=== PATIENT | female | born 1965 | race Caucasian/White ===

== ENCOUNTER 2025-06-13 14:49 | Outpatient (AMB) | payer BC, SELFPAY ==
--- NOTE | 2025-06-13 14:53 | A.PHYSOV ---
Vital Signs 06/13/25 15:00 Height 5 ft 4 in Weight 122 lb BMI 20.9 Intake Visit Reasons: F/U after injection 04/14/2025 Intake Note: Patient is a 59 year old female in office today for a follow up after Right Sacroiliac Joint injection 04/14/25. Patient states she's back to normal with the pain. Full Stack Web Developer Required: No Allergies terbinafine (From Lamisil) Allergy (Unknown, Verified 06/13/25 14:57) Unknown HPI Comments Details: History of Present Illness The patient is a 59 year old female presenting for a follow-up visit for chronic lower back pain. The pain is primarily on the right side of her lower back, concentrated over the right sacroiliac joint area, and is exacerbated by standing and walking. She is radiating down her right hip and denies any changes in bowel or bladder habits, fever, or chills. Her history is notable for a lumbar fusion at L4-L5 with a yanely and four screws, performed in 2019. She was referred by her chiropractor, Dr. Waters, for ongoing symptoms. A right sacroiliac joint injection on April 14, 2025, provided approximately one week of pain relief, though the procedure itself was very painful. She continues to receive chiropractic treatments. She continues to perform physician guided home exercises. Pain Description - Onset and character: Chronic lower back pain. - Location: Primarily on the right side of her lower back, concentrated over the right sacroiliac joint. - Radiation: The pain does not travel down her leg. - Exacerbating factors: Standing and walking. - Relieving factors: A right SI joint injection provided temporary relief for about one week. Results - Imaging: X-rays from March 09, 2025, showed degenerative changes in the lumbosacral spine and spondylolisthesis at L5-S1. - Procedures: A right sacroiliac joint injection performed on April 14, 2025, resulted in about one week of pain relief. [facility] Medical History (Updated 06/13/25 @ 15:19 by Eliud Rocha DO) Post laminectomy syndrome Sacroiliac dysfunction Lumbar radiculitis Surgical History (Updated 06/13/25 @ 14:59 by Mary Martinez MA) History of knee surgery History of back surgery Social History (Updated 06/13/25 @ 15:00 by Mary Martinez MA) Alcohol intake: current Alcohol intake frequency: does not drink Patient Tobacco Use Status: Former Tobacco user Use of substances other than those prescribed or required for medical reasons: No Current occupational status: employed Current occupation: fulltime Review of Systems Narrative Review of Systems - Constitutional: Denies fever or chills. - Musculoskeletal: Reports chronic right-sided lower back pain, exacerbated by standing and walking. - Neurological: Denies pain radiating down the leg. - Genitourinary: Denies any change in bladder habits. - Gastrointestinal: Denies any change in bowel habits. Physical Exam Exam Exam: Physical Exam - Musculoskeletal: On examination while standing, tenderness was elicited with palpation over the right lower back and sacroiliac region. Patient ambulates without antalgia. She was able to perform heel walk and toe walk. Positive right SI compression test. Dural tension signs were negative. Neurological examination was nonfocal. Patient demonstrated no upper motor neuron signs. Vital Signs: BMI result Body Mass Index 20.9 Assessment & Plan Assessment & Plan (1) Lumbar radiculitis: Code(s): M54.16 - Radiculopathy, lumbar region Category: Medical (2) Sacroiliac dysfunction: Code(s): M53.3 - Sacrococcygeal disorders, not elsewhere classified Category: Medical (3) Post laminectomy syndrome: Code(s): M96.1 - Postlaminectomy syndrome, not elsewhere classified Category: Medical Plan Pain Management - Affect: The patient described her prior right SI joint injection as very painful. - Analgesia: A right SI joint injection provided approximately one week of pain relief. - Activities of Daily Living: Pain is exacerbated by standing and walking. Plan Patient was informed and verbally consented to the use of an ambient scribe for clinic note documentation during this visit. 1. Chronic Lower Back Pain The patient reports continued chronic right-sided low back pain despite prior interventions, including a right sacroiliac joint injection that provided only one week of relief. The differential diagnosis includes persistent sacroiliac joint pain or an alternative etiology, such as pathology at the L5-S1 level below her prior L4-L5 fusion, where spondylolisthesis is noted. To further evaluate the source of her pain, an MRI of the lumbar spine with contrast will be ordered, as her surgery was in 2019. Given her traumatic experience with the previous injection, future procedures, should they be necessary at the L5-S1 level, would be considered under anesthesia. The patient will be contacted by the imaging facility to schedule the MRI, and a follow-up appointment will be arranged to discuss the results. Discussion Notes I discussed with the patient that her chronic right-sided low back pain may still be originating from the sacroiliac joint, despite the short duration of relief from the injection, or it could be from a different issue. I recommended we proceed with a new MRI of her lumbar spine to further investigate, particularly to assess the L5-S1 level below her fusion, which shows some spondylolisthesis. I explained that because her surgery was in 2019, the MRI would require contrast. We acknowledged her traumatic experience with the last injection, and I advised that if a future procedure is needed, we would consider performing it under anesthesia for her comfort. I informed her my office will submit the request for the MRI, the imaging facility will call her to schedule, and we will have a follow-up visit after the results are available. The patient was agreeable to this plan. Patient Instructions - We will be ordering an MRI of your lower back with contrast to get a better look at what is causing your pain. - The MRI facility will call you directly to schedule your appointment. - We will schedule a follow-up visit to review the results of your MRI and decide on the next steps for treatment. Orders: Orders MR lumbar spine wo/w con Today M53.3 - Sacrococcygeal disorders, not elsewhere classified, M54.16 - Radiculopathy, lumbar region, M96.1 - Postlaminectomy syndrome, not elsewhere classified Coding Level of Care Code Est Pt Level 4 (81343) Complex visit Add On G2211 Diagnoses Lumbar radiculitis M54.16 Sacroiliac dysfunction M53.3 Post laminectomy syndrome M96.1
[2025-06-13 15:00] VITALS: BMI 20.9
--- OUTSIDE RECORDS SUMMARY | 2025-06-13 20:55 | XMS_ITS | Encounter Summary ---
Author Organization [employer] [facility] Prior to 05/06/2024 Address [address] [place] [address] Care Team Providers Care Commercial Floor Covering Installer Name Role Phone Kelsy Ruth MD Primary Care Provider Shreyas paula Bray Ch MD Primary Care Provider [phone] Encounter Details Date Type Department Care Team Description 09/16/2018 Release of Information Medical Records [address] [place] [address] Abstract, Provider Social History Tobacco Use Types Packs/Day Years Used Date Smoking Tobacco: Every Day Cigarettes 0.5 20 Smokeless Tobacco: Never Alcohol Use Standard Drinks/Week Comments Yes 0 (1 standard drink = 0.6 oz pure alcohol) alcohol abuse until 2002, recidivism 2011 - 2013 Alcohol Habits Answer Date Recorded How often do you have a drink containing alcohol ? Never 07/03/2020 How many drinks containing a lcohol do you have on a typical day when you are drinking? Not asked How often do you have six or more drinks on one occasion? Not asked Sex Assigned at Date Recorded Not on file documented as of this encounter Plan of Treatment Not on file documented as of this encounter Visit Diagnoses Not on filedocumented in this encounter Care Teams Commercial Floor Covering Installer Relationship Specialty Start Date End Date Kelsy Ruth MD PCP - General 08/17/10 12/24/20 Trace Bray MD [address], [place] PCP - General Internal Medicine 12/25/20 documented as of this encounter
--- OUTSIDE RECORDS SUMMARY | 2025-06-13 20:55 | XMS_ITS | Encounter Summary ---
Author Organization [facility] [employer] [facility] Prior to 05/06/2024 Address [address] [place] [address] Care Team Providers Care Hvac Refrigeration Technician Name Role Phone Kelsy Ruth MD Primary Care Provider Arthur Bray Primary Care Provider [phone] Reason for Visit * Reason Onset Date Comments refill request 09/13/2018 Encounter Details Date Type Department Care Team Description 09/13/2018 Refill Adult Medicine - [facility] [address] [place] [address] Kelsy Ruth MD refill request Social History Tobacco Use Types Packs/Day Years [...] on file documented as of this encounter Miscellaneous Notes * Telephone Encounter - Cecille Sneed NP - 09/13/2018 4:31 PM EDT Will prescribe #6 tabs. Pt aware that this WILL NOT be refilled * Telephone Encounter - Renetta Morelos - 09/13/2018 4:10 PM EDT Pt calling to check the status of this- pt states she will start to make her way in, she really needs this medicaiton today * Telephone Encounter - Nelly Grimes M.A. - 09/13/2018 1:40 PM EDT No csc * Telephone Encounter - Jigna De Los Santos - 09/13/2018 1:39 PM EDT Patient would like script to be: E-PRESCRIBED/FAXED TO PHARMACY WHEN WAS THE PATIENT'S LAST APPOINTMENT IN ADULT MEDICINE? 09/10/18 WHEN WAS THE LAST TIME THE PATIENT SAW THEIR PCP? Does patient have an upcoming appointment? No-patient refused appointment, will call back to book appointment (THE MEDICATION REQUESTED IS ON THE MED LIST ABOVE) All of the medications requested were on the CURRENT MEDS list Did you check the Pharmacy information above?: NO Patient wants: 30 -day supply Is this a mail order prescription request ? NO If the refill is from a FAXED refill request what is the RX # listed on the fax? N/A Patients current insurance carrier is: Payor: [employer]/PPO POS / Plan: FEP BASIC $30/$40 [place] / Product Type: PPO [id number] documented in this encounter Plan of Treatment Not on file documented as of this encounter Visit Diagnoses Not on filedocumented in this encounter Care Teams Hvac Refrigeration Technician Relationship Specialty Start Date End Date Kelsy Ruth MD PCP - General 08/17/10 12/24/20 Trace Bray MD [address] [place] [id number] PCP - General Internal Medicine 12/25/20 documented as of this encounter
--- OUTSIDE RECORDS SUMMARY | 2025-06-13 20:55 | XMS_ITS | Encounter Summary ---
Author Organization [employer] [facility] Prior to 05/06/2024 Address [address] [place] [address] Care Team Providers Care Double Surface Operator Name Role Phone Kelsy Ruth MD Primary Care Provider Shreyas paula Bray Ch MD Primary Care Provider [phone] Encounter Details Date Type Department Care Team Description 09/10/2018 Release of Information Medical Records [address] [place] [id number] Abstract, Provider Social History Tobacco Use Types [...] on filedocumented in this encounter Care Teams Double Surface Operator Relationship Specialty Start Date End Date Kelsy Ruth MD PCP - General 08/17/10 12/24/20 Trace Bray MD [address] [place], [place] PCP - General Internal Medicine 12/25/20 documented as of this encounter
--- OUTSIDE RECORDS SUMMARY | 2025-06-13 20:56 | XMS_ITS | Encounter Summary ---
Author Organization [employer] [facility] Prior to 05/06/2024 Address [address] [place] [address] Care Team Providers Care Retail Banking Manager Name Role Phone Trace Bray MD Primary Care Provider [phone] Encounter Details Date Type Department Care Team Description 08/29/2021 Hospital Medical Records [address] [place] [address] Pat Herrera MD [address] [place] [address] Social History Tobacco Use Types Packs/Day Years Used Date Smoking Tobacco: Former Cigarettes 0.5 20 Smokeless Tobacco: Never Alcohol Use Standard Drinks/Week Comments No 0 (1 standard drink = 0.6 oz pur e alcohol) Alcohol Habits Answer Date Recorded How often [...] on filedocumented in this encounter Care Teams Retail Banking Manager Relationship Specialty Start Date End Date Trace Bray MD [address] [place] [address] PCP - General Internal Medicine 12/25/20 documented as of this encounter
--- OUTSIDE RECORDS SUMMARY | 2025-06-13 20:56 | XMS_ITS | Encounter Summary ---
Author Organization [employer] [facility] Prior to 05/06/2024 Address [address] [place] [address] Care Team Providers Care Care Transitions Manager Name Role Phone Kelsy Ruth MD Primary Care Provider [facility] paula Bray Ch MD Primary Care Provider [phone] Encounter Details Date Type Department Care Team Description 05/03/2014 Night Triage Doc Medical Records [address] [place] [address] Abstract, Provider Social History Tobacco Use Types Packs/Day Years Used Date Smoking Tobacco: Every Day Cigarettes 1 20 Smokeless Tobacco: Never Alcohol Use Standard [...] on filedocumented in this encounter Care Teams Care Transitions Manager Relationship Specialty Start Date End Date Kelsy Ruth MD PCP - General 08/17/10 12/24/20 Trace Bray MD [address] [place], [place] PCP - General Internal Medicine 12/25/20 documented as of this encounter
--- OUTSIDE RECORDS SUMMARY | 2025-06-13 20:56 | XMS_ITS | Encounter Summary ---
Author Organization [email or web address] [facility] Prior to 05/06/2024 Address [address] [place] [address] Care Team Providers Care Search Manager Name Role Phone Kelsy Ruth MD Primary Care Provider [facility] Trace Bray MD Primary Care Provider [phone] Encounter Details Date Type Department Care Team Description 06/18/2015 Timber Inspector Report Medical Records [address] [place] [address] Lizette Hull MD Social History Tobacco Use Types Packs/Day Years [...] on filedocumented in this encounter Care Teams Search Manager Relationship Specialty Start Date End Date Kelsy Ruth MD PCP - General 08/17/10 12/24/20 Trace Bray MD [address] [place], [place] PCP - General Internal Medicine 12/25/20 documented as of this encounter
--- OUTSIDE RECORDS SUMMARY | 2025-06-13 20:56 | XMS_ITS | Encounter Summary ---
Author Organization [employer] [facility] Prior to 05/06/2024 Address [address] [place] [address] Care Team Providers Care Watch Parts Grinder Name Role Phone Kelsy Ruth MD Primary Care Provider [facility] Trace Bray MD Primary Care Provider [phone] Encounter Details Date Type Department Care Team Description 11/09/2014 Goodwill Representative Report Medical Records [address] [place] [address] Richar Mccain PA-C Social History Tobacco Use Types Packs/Day Years [...] on filedocumented in this encounter Care Teams Watch Parts Grinder Relationship Specialty Start Date End Date Kelsy Ruth MD PCP - General 08/17/10 12/24/20 Trace Bray MD [address] [place], [place] PCP - General Internal Medicine 12/25/20 documented as of this encounter
--- OUTSIDE RECORDS SUMMARY | 2025-06-13 20:56 | XMS_ITS | Continuity of Care Document ---
Author Organization [place] [facility] Griselda Alonzo [place] Address [address] [address] Care Team Providers Care Light Bulb Tester Name Role Phone NINA GARCIA Primary Care Provide r NINA GARCIA Referring Provider Assessment Encounter Date Assessment Date Assessment LastModified by Organization Details LastModified Time 03/29/2025 03/29/2025 IMPRESSION: 59-year-old woman with right hand base of fifth metatarsal fracture nondisplaced date of injury 02/28/2025 Left patella fracture nondisplaced date of injury 02/28/2025 PLAN: Patient is doing well from her patellar fracture. At this point we may advance her brace 10 degrees weekly. Brace was adjusted to 60 degrees of knee flexion with the goal to be at 90 degrees by week 6 of the injury. She is still to remain walking with the knee locked in extension. She may be made weightbearing as tolerated. Will see her back in 4 weeks for repeat evaluation anticipate discontinuation of the brace at that point. PRIOR AR 03/01/2025 I discussed the treatment options with the Patient includin. Living with the symptoms. 2. Continued non-operative management. 3. Surgical intervention. With respect to her base of the fifth metatarsal hand fracture recommend that we place her in a ulnar gutter splint with the MCP joints flexed at 70 to 90 degrees. She will likely be transitioned to a cast. Anticipate 4 weeks of immobilization followed by therapy I will have her follow-up with her hand specialist Dr. Dillon next week. With respect to her left patella fracture we discussed both nonoperative and operative interventions. Given that she is able to straight leg raise and there is no displacement related to her fracture after reviewing risk benefits alternatives and through shared decision making patient elected to proceed with nonoperative management. Nonoperative management would be in the form of 6 to 8 weeks of immobilization with a hinged knee brace with gradual progression of range of motion beginning at 4 weeks. Patient was prescribed a hinged knee brace for above diagnosis. The patient is ambulatory but has weakness and/or instability of their Left knee which requires stabilization from this semi-rigid / rigid orthosis to improve their function. I will see her back in 4 weeks for repeat radiographic and clinical evaluation related to her left knee. In the interim she may remain out of work. Not available 04/04/2025 10:42:10 Plan of Treatment Reminders Order Date Submit Date Provider Last Modified By Organization Details Last Modified Time Details Appointments None record ed. Lab None record ed. Referral None record ed. Procedures None record ed. Surgeries None record ed. Imaging XR, knee, 1 or 2 view 025 03/29/20 25 [facility], [address], [place], [address], 5 15:54:07 Medication Orders None record ed. Patient TargetsNo targets recorded. Patient Instructions Encounter Date Encounter Id Patient Instructions Last Modified By Organization Details Last Modified Time 03/29/2025 [id number] views of the left knee were obtained demonstrate nondisplaced fracture of the patella transverse and vertical component portion unchanged alignment noted callus formation and interval healing noted of the patella fracture Not available 04/04/2025 10:42:00 Reason for Referral None Reported. Problems Name Problem SNOMED Code Status Onset Date Resolution Date Notes Provider Name and Address Organization Details Recorded Time Closed fracture of patella 67042060 Active 2024 Fran Delarosa MD [address], [place], [address] , [place] [facility], P 5 10:07:19 Closed fracture of base of fifth metacarpal bone of right hand 7311241874924 9108 Active 2024 Fran Delarosa MD [address], [place], [address] , [place] [facility], P 5 10:07:49 Pain of right hand 9698733254541 09 Active 2024 Fran Delarosa MD [address], [place], [address] , [place] [facility], P 5 10:40:22 Pain of left knee region 2649000782857 09 Active 2024 Fran Delarosa MD [address], [place], [address] , [place] [facility], P 5 10:40:22 Problem Notes None recorded. Procedures Surgical History Date Name Laterality Status Provider Name and Address Organization Details Recorded Time operative procedure on knee completed [facility], [facility] 03/15/2025 16:02:45 operation on vertebra completed [facility], [facility] 03/15/2025 16:03:04 Imaging Results None recorded. Procedure Notes None recorded. Medical Equipment None Reported. Allergies Allergen ID Allergen Name Allergen Category Reaction Reaction Severity Criticality Documentation Date Start Date Code Code System Note Provider Name and Address Organization Details Recorded Time 225693 terbinafi ne medicatio n Not available Not available Not available 05/25/2025 78245 RxNorm Not Available [employer] - External Data [employer] - prod 5 10:10:05 329188 ibuprofen medicatio n Not available Not available Not available 05/25/20252023 5640 RxNorm GI Probl ems Not Available [employer] - prod 5 10:10:10 058126 Naprosyn medicatio n Not available Not available Not available 05/25/2025 2 RxNorm Not Available [employer] Data Service - prod 5 10:12:11 860956 oxycodone hydrochlo ride medicatio n Not available Not available Not available 05/25/20252022 31691 RxNorm Not Available [employer] - prod 5 10:12:11 608683 naproxen sodium medicatio n Not available Not available Not available 05/25/20252024 78060 2 RxNorm Not Available [facility] External Data Service - prod 5 10:12:13 121742 terbinafi ne hydrochlo ride medicatio n other Not available Not available 05/25/20252010 60959 8 RxNorm Loss of taste Not Available [facility] External Data Service - prod 5 10:12:13 06737 Lamisil medicatio n other moderate Not available 03/08/2025 30151 6 RxNorm Edmundo Teresa null, [place] - [facility], P 5 10:34:54 66446 naproxen medicatio n Not available Not available Not available 03/15/2025 7258 RxNorm Coco Orourke null, [place] - [facility], P 5 15:47:06 Medications Name Sig Start Date Stop Date Status Note LastModified by Organization Details LastModified Time polymyxin B sulfate 10,000 unit-trimet hoprim 1 mg/mL eye drops TAKE 1 (OPHTHALM IC (EYE)) 4 TIMES PER DAY FOR 7 DAYS 03/07 completed Not Available Not Available Not Available sertraline 25 mg tablet TAKE 1 TABLET BY MOUTH EVERY DAY TAKE WITH 50MG FOR TOTAL OF 75MG active Not Available Not Available No t Available nystatin 100,000 unit/gram topical powder APPLY TO GROIN 1-2 TIMES PER DAY TO TREAT / PREVENT TINEA INFECTION 03/15 completed Not Available Not Available Not Available ketoconazol e 2 % topical cream PLEASE SEE ATTACHED FOR DETAILED DIRECTION S active Not Available Not Available No t Available sertraline 50 mg tablet TAKE 1 TABLET BY MOUTH ONE TIME A DAY WITH 25MG TAB FOR TOTAL OF 75MG active Not Available Not Available No t Available PreviDent 5000 Dry Mouth 1.1 % dental paste APPLY THINK RIBBON TO TOOTHBRUS H. BRUSH FOR 2 MINS AT BEDTIME, DO NOT EAT/DRINK /RINSE FOR 30 MINS. active Not Available Not Available No t Available Vitals None Recorded Social History None recorded. Functional Status Question Answer Note LastModified by Organizat ion Details LastModified Time Do you use any illicit or recreational drugs? No Information not available 03/15/2025 What is your level of alcohol consumption? None Information not available 03/15/2025 Mental Status None recorded. Family History Relationship Description Onset Age of this Age Resolved Age Notes LastModified by Organization Details LastModified Time Mother Arthritis Not avail able 03/15/2025 16:01:59 Medical History Condition Response Coronary Artery Disease N Gout N Hyperthyroidism N MRSA N Blood Transfusion N Emphysema N Hypothyroidism N Depression N COPD N Pacemaker N Vascular Disease N Gastrointestinal Disease N Anxiety Disorder N Autoimmune disease N Arthritis Y Cancer N Stroke N High Cholesterol N Neurologic Disorder N Liver Disease N Organ Transplant N Rheumatoid Arthritis N Arrhythmia N Fibromyalgia N Kidney Disease N Allergies/Hayfever Y Adverse Reaction to Anesthesia N Thyroid Problems N Anemia N Brain Injury N Heart Attack (ND) N Osteopenia N Diabetes N Bleeding Disorder N Seizures/Epilepsy N AIDS/HIV N Congestive Heart Failure (CHF) N Asthma N Amputation N Reflux/GERD N Sleep Apnea N Hepatitis N Aneurysm N Heart Disease N Pulmonary Embolism N Hypertension N Osteoporosis N Gynecological HistoryNo gynecological history recorded. Obstetrics History GPAL:G 0 P 0 0 0 0 Past Encounters Encounter ID Performer Location Encounter Start Date Encounter Closed Date Diagnosis/Indication Diagnosis SNOMED-CT Code Diagnosis ICD10 Code Diagnosis IMO Codes Diagnosis Note [id number] Fran Delarosa MD [facility] [address] [place] [address] [address] [place] [address] 03/01/2025 09:24:55 03/01/2025 10:20:17 Pain of left knee region 4708771594 57846 M25.562 05734510 Pain of right hand 94251 89596 43766 M79.241 1513110 Closed fra cture of patella 29502995 S82.002A 820177328 Closed fra cture of base of fifth metacarpal bone of right hand 7965312572 2837304 S62.346A [id number] Macarena Dillon MD [address] [place] [address] 03/08/2025 10:28:00 03/08/2025 12:03:29 Pain of right hand 8506277964 94832 M79.710 4924232 Closed fra cture of base of fifth metacarpal bone of right hand 4306870142 1816937 S62.346A [id number] MD ADONAY [place] [address] [facility] [address] [place] [address] 03/29/2025 09:19:15 03/29/2025 10:05:26 Closed fracture of patella 85135290 S82.002A 132068606 Pain of le ft knee region 0375625857 48522 M25.562 55078156 Pain of right hand 45948 37133 81050 M79.982 2908480 Closed fra cture of base of fifth metacarpal bone of right hand 3769368304 5353091 S62.346A [id number] Health Concerns Section Related Observation LastModified by Organization Detai ls LastModified Time None Recorded Concern Status LastModified by Organization Details LastModified Time None Recorded Payers Encounter Date Sequence Insurance Name Policy Number Policy Morris Covered Member ID Morris Member ID Guarantor Name 03/29/2025 1 [place]: [employer] [facility] [employer] [id number] Vanessa Sherman [id number] Vanessa Sherman Notes Date Note Type Note Provider Name and Address Organization Details Recorded Time 03/29/2025 text/html ROS as noted in the HPI Patient returns to the office today. She is 4 weeks removed from her patella fracture. She is doing well and not 100% but feeling improvements week to week. [place] [id number] d woman presenting with multiple injuries following a trip and fall while walking her dogs last night she sustained a right hand injury and a left knee injury. Since then she has had difficulty straightening her leg and lifting it. She still able to ambulate though it is difficult additionally she has significant swelling with respect to her right hand. 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 Fran Delarosa MD [address], [place], [address], [place] [facility] 04/04/2025 10:43:29 OBGyn Episode No OBEpisode recorded.
--- OUTSIDE RECORDS SUMMARY | 2025-06-13 20:56 | XMS_ITS | Encounter Summary ---
Author Organization [employer] [facility] Prior to 05/06/2024 Address [address] [place] [address] Care Team Providers Care Fondant Cooker Name Role Phone Trace Bray MD Primary Care Provider [phone] Encounter Details Date Type Department Care Team Description 11/27/2022 Bpm Analyst Report Medical Records [address] [place] [address] Yassine Corbin Social History Tobacco Use Types Packs/Day Years [...] on filedocumented in this encounter Care Teams Fondant Cooker Relationship Specialty Start Date End Date Trace Bray, [address] [place], [place] PCP - General Internal Medicine 12/25/20 documented as of this encounter
--- OUTSIDE RECORDS SUMMARY | 2025-06-13 20:56 | XMS_ITS | Encounter Summary ---
Author Organization [facility] [employer] [facility] Prior to 05/06/2024 Address [address] [place] [address] Care Team Providers Care Manager Van Name Role Phone Kelsy Ruth MD Primary Care Provider [facility] Trace Bray MD Primary Care Provider [phone] Encounter Details Date Type Department Care Team Description 08/22/2020 Cook Helper Report Medical Records [address] [place] [address] Yazan Griggs Social History Tobacco Use Types Packs/Day Years [...] on filedocumented in this encounter Care Teams Manager Van Relationship Specialty Start Date End Date Kelsy Ruth MD PCP - General 08/17/10 12/24/20 Trace Bray MD [address] [place] [address] PCP - General Internal Medicine 12/25/20 documented as of this encounter
--- OUTSIDE RECORDS SUMMARY | 2025-06-13 20:56 | XMS_ITS | Encounter Summary ---
Author Organization [employer] [facility] Prior to 05/06/2024 Address [address] [place] [address] Care Team Providers Care Mastic Sprayer Name Role Phone Trace Bray MD Primary Care Provider [phone] Encounter Details Date Type Department Care Team Description 07/31/2023 Orders Only Medical Records [address] [place] [address] Lizette Hull MD Social History Tobacco Use [...] on file documented as of this encounter Procedures Procedure Name Priority Date/Time Associated Diagnosis Comments OUTSIDE PAP SMEAR Routine 07/15/2023 documented in this encounter Results * OUTSIDE PAP SMEAR (07/15/2023) Lizette Hull MD LAB documented in this encounter Visit Diagnoses Not on filedocumented in this encounter Care Teams Mastic Sprayer Relationship Specialty Start Date End Date Trace Bray MD [address] [place], [place] PCP - General Internal Medicine 12/25/20 documented as of this encounter
--- OUTSIDE RECORDS SUMMARY | 2025-06-13 20:56 | XMS_ITS | Encounter Summary ---
Author Organization [facility] [employer] [facility] Prior to 05/06/2024 Address [address] [place] [address] Care Team Providers Care Radio Aerial Installer Name Role Phone Kelsy Ruth MD Primary Care Provider Arthur Bray Primary Care Provider [phone] Encounter Details Date Type Department Care Team Description 07/18/2020 Orders Only Medical Records [address] [place] [address] Vanessa Suazo MD [address] [place] [address] Social History Tobacco Use Types Packs/Day Years [...] Assigned at Date Recorded Not on file COVID-19 Exposure Response Date Recorded In the last month, have you been in contact with someone who was confirmed or suspected to have Coronavirus / COVID-19? No / Unsure 07/03/2020 9:51 AM EST documented as of this encounter Progress Notes * Jina Suazo MD - 07/22/2020 5:55 PM EST Dear Vanessa, The polyp(s) that were removed during your colonoscopy were precancerous, but benign. Fortunately, we removed them and therefore, they will not cause any more problems in the future. Based on the number, the size, and the features of the polyp(s) removed, I recommend a follow-up colonoscopy in 5 years. Before, the 5 years are due, we will send you a reminder in the mail asking you to contact our office to have the colonoscopy scheduled. I would like to personally thank you for allowing us to take care of you. Please don't hesitate to call us for any questions or concerns. Regards, John Suazo MD Board Certified Gastroenterology and Internal Medicine Transplant Hepatology [facility] documented in this encounter Plan of Treatment Not on file documented as of this encounter Procedures Procedure Name Priority Date/Time Associated Diagnosis Comments OUTSIDE PATHOLOGY Routine 07/16/2020 documented in this encounter Results * OUTSIDE PATHOLOGY (07/16/2020) Vanessa Suazo MD OUTSIDE LAB documented in this encounter Visit Diagnoses Not on filedocumented in this encounter Care Teams Radio Aerial Installer Relationship Specialty Start Date End Date Kelsy Ruth MD PCP - General 08/17/10 12/24/[address] [facility] [place] [address] PCP - General Internal Medicine 12/25/20 documented as of this encounter
--- OUTSIDE RECORDS SUMMARY | 2025-06-13 20:56 | XMS_ITS ---
Author Name [facility] Organization Unknown History of Medication Use Medication Directions Dispensed Refills Start Date End Date Stat us polymyxin B sulfate 10,000 unit-trimethoprim 1 mg/mL eye drops TAKE 1 (OPHTHALMIC (EYE)) 4 TIMES PER DAY FOR 7 DAYS 03/07/2025 completed ketoconazole 2 % topical cream PLEASE SEE ATTACHED FOR DETAILED DIRECTIONS active nystatin 100,000 unit/gram topical powder APPLY TO GROIN 1-2 TIMES PER DAY TO TREAT / PREVENT TINEA INFECTION active PreviDent 5000 Dry Mouth 1.1 % dental paste APPLY THINK RIBBON TO TOOTHBRUSH. BRUSH FOR 2 MINS AT BEDTIME, DO NOT EAT/DRINK/RINSE FOR 30 MINS. active sertraline 25 mg tablet TAKE 1 TABLET BY MOUTH EVERY DAY TAKE WITH 50MG FOR TOTAL OF 75MG active sertraline 50 mg tablet TAKE 1 TABLET BY MOUTH ONE TIME A DAY WITH 25MG TAB FOR TOTAL OF 75MG active Allergies Allergen Reaction Severity Comment Documented Date Source Statu s LAMISIL OTHER moderate severity [facility] NAPROXEN [facility] Problems Problem Status Onset Date Problem Type Date of Resoluti on Source Closed fracture of base of fifth metacarpal bone of right hand active 2025-03-01 ProblemAct [facility] Pain of right hand active 2025-04-04 ProblemAct [facility] Pain of left knee region active 2025-04-04 ProblemAct [facility] Closed fracture of patella active 2025-03-01 ProblemAct [facility] Encounters Encounter Type Encounter Reason Primary Diagnosis Location Date Ambulatory [facility] 04/27/2025 Ambulatory [facility] 04/26/2025 Ambulatory [facility] 04/18/2025 Ambulatory [facility] 04/13/2025 Ambulatory [facility] 04/04/2025 Ambulatory [facility] 03/30/2025 Ambulatory [facility] 03/29/2025 Ambulatory [facility] 03/28/2025 Ambulatory [facility] 03/09/2025 Ambulatory [facility] 03/08/2025 Ambulatory [facility] 03/07/2025 [facility]ulatory [facility] 03/07/2025 Ambulatory [facility] 03/07/2025 Ambulatory [facility] 03/07/2025 Ambulatory [facility] 03/02/2025 Ambulatory [facility] 03/01/2025 Ambulatory [facility] 03/01/2025 Ambulatory [facility] 03/01/2025 Ambulatory [facility] 03/01/2025
--- OUTSIDE RECORDS SUMMARY | 2025-06-13 20:56 | XMS_ITS | Data Portability ---
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 The injury occurred when she tripped going up stairs and attempted to prevent a fall on 04/16/2024. She reports feeling a 'pop' followed by difficulty walking and limited stride length. Patient sought urgent care evaluation on the day of injury and took the following day off work. By Thursday, she reports significant improvement in symptoms, though not complete resolution. At this time, she really has no pain or functional limitations. Primary complaint is discomfort with prolonged sitting. Denies pain while driving her mail truck or with walking. Reports no pain with stairs or other activities. No other associated symptoms reported. I independently reviewed the outside MRI of the right thigh dated the 06/06/2024 from [facility]. There is a full-thickness rupture of the proximal hamstring origin from the ischial tuberosity with a mild to moderate associated hematoma. Peritrochanteric bursitis also noted with insertional tendinopathy to the gluteus medius and minimus. No significant arthritic change the hip joint. Rectus femoris intact. Iliopsoas intact. She has no significant past medical history. Past medical, surgical, family and social history; Medications, Allergies and 12-point review of systems have been reviewed, updated and charted. Physical Examination: Height and weight as listed in chart. Constitutional: Patient pleasant, well appearing and in NAD. Mental status: Patient is alert and oriented to person, place and time. No short-term memory deficits. Psychiatric: Mood and affect are appropriate. Head: Normocephalic and atraumatic. Exterior inspection of the ears and nose was unremarkable. Hearing grossly intact. Eyes: Sclera are not blue. hand twister II-XII are grossly intact. Full extraocular motion. Neck: Supple with age-appropriate ROM. No tracheal deviation. No obvious JVD. Respiratory: Non-labored breathing. Symmetric excursion. No audible wheezing or crackles. Peripheral Vascular: No peripheral edema. Distal pulses intact. Neurological: Peripheral motor and sensory exam normal and equal bilaterally. Skin: No rashes, lesions, wounds to the lower extremities. Normal turgor and coloration. Musculoskeletal: On examination of the right hip and thigh, there is no swelling, erythema or ecchymosis. She can straight 5/5 strength on resisted knee flexion. No pain with resisted knee flexion. She believes normally without a limp. 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 1. Right Proximal Hamstring Partial Tear: - Retained function with excellent strength on examination today. - Given good functional status, minimal current symptoms, and preserved strength, conservative management is indicated - Surgery not recommended due to: * Good functional status * Limited symptoms primarily with sitting only * Risk/benefit ratio does not favor surgical intervention Plan: - Continue current activities as tolerated - No formal physical therapy needed at this time - Return to clinic as needed - Patient educated about natural history and good prognosis - All questions and concerns addressed. Today's visit involved examining the patient, reviewing the history, reviewing the radiographic studies, counseling the patient regarding treatment options, and the administrative tasks including placing orders, preparing patient information and home handouts and preparing the visit note. This note was generated with [facility] [employer] [facility] speech recognition metal spray operator dictation software. Please excuse any errors that may have been overlooked during review of this note. Sometimes, these errors may affect the content or meaning of a given sentence. Please call for corrections. [email or web address] Not available 07/07/2024 09:27:46 Plan of Treatment Reminders Order Date Submit Date Provider Last Modified By Organization Details Last Modified Time Details Appointments None recorded. Lab None recorded. Referral None recorded. Procedures None recorded. Surgeries None recorded. Imaging MRI, thigh, w/o contrast 2023 024 [facility] [address], [place], [address], 4 15:04:48 XR, hip + pelvis, unilateral , 2 or 3 view - right Hip pain Room 209 2023 024 [facility] [place] [facility], [address], [address], [place], [address], 4 13:16:31 Medication Orders None recorded. Patient TargetsNo targets recorded. Patient InstructionsNo instructions recorded. Reason for Referral None Reported. Results Created Date Observation Date Name Description Value Unit Range Abnormal Flag Note LastModifiedBy Organization Detail LastModifiedTime 04/05/2004/05/2024 XR, hip + pelvi s, unila teral , 2 or 3 view http:/ [email or web address] ?Encry pted=s hAaTro YD8dLq bEUv6g %2BXZw aYqtaq 0bqfl% 2Fg9IQ a4ajBk vP9nXo QUaueC m3YtLR FvZlgJ JJ8mAn HZtai3 4a2543 AC0Kqa 3yFVKu mKiQtr MwF INTERFACE [facility] [address], [place], [address], 04/05/2024 13:52:06 04/05/20 24 04/05/2024 XR, hip + pelvi s, unila teral , 2 or 3 view http:/ [email or web address] ?Encry pted=s hAaTro YD8dLq bEUv6g %2BXZw aYqtaq 0bqfl% 2Fg9IQ a4ajBk vP9nXo QUaueC m3YtLR FvZlgJ JJ8mAn HZtai3 0t2265 AC0Kqa 3yFVKu mKiQtr MwF INTERFACE [facility] [address], [place], [address], 04/05/2024 13:52:08 06/07/20 24 06/06/2024 MRI, lower extre mity, w/o contr ast [facility] Access ion Number : [id number] Patien t Name: Vanessa Sherman Record Number : [id number] Date of : 1965 Date of Exam: 2023 Referr ing Physic mani: Durga Story en NEOS [address], [address] [facility] [place] [facility] [place] [address] Exam: MR Thigh Unilat (C-) CPT 94388 - Right Room Descri ption: [facility] 3.0T MRI RIGHT THIGH HISTOR Y: Pain FINDIN GS: Right hamstr ing tendon ruptur e with approx imatel y 2 cm of retrac tion. Adduct or art tendon is intact Remain ing thigh muscul ature is normal . Normal femur . No marrow edema or focal lesion . Incide ntal left Reyes' s cyst. Small right patell ofemor al osteop hytes IMPRES RON: Hamstr ing tendon ruptur e. Other incide ntal findin gs are outlin ed above Electr onical ly Signed By: Guy patrick [facility] [address], [place], [address], 06/09/2024 13:29:46 06/07/20 24 06/06/2024 imagi ng/di agnos tic resul t No observ ation record ed. [facility] [address], [place], [address], 06/08/2024 10:09:12 Result Notes Documentation Provider Name and Address Organization Details Recorded Time Xr, Hip + Pelvis, Unilateral, 2 Or 3 View : [email or web address] Encrypted=sbWyUyhOD5bSegL Uv6g%4NAHktYuctr0qnjg%2Fg 9WXh1gtCzdX4dZjDStmhFf1Cf OCPcUnsALZ2cStVFzta75c555 0IJ9Ahv3cEPLloMqDkyWfQ Not Available Critical access hospital 04/05/2024 13:52:07 Xr, Hip + Pelvis, Unilateral, 2 Or 3 View : [email or web address] Encrypted=fkCpVnjIG3oNouD Uv6g%1BIThpLungh0yrbi%2Fg 3PZa9yuBtkV0wWpILfgvYk4Bg JDDaSdgCNW7lTnWGfon58o647 6WH6Fmx8hFQUkcEfLckAoF Not Available Critical access hospital 04/05/2024 13:52:09 Mri, Lower Extremity, W/o Contrast : [facility] Accession Number: [id number] Patient Name: Vanessa Sherman Date of : 1965 Date of Exam: 06-06-2024 Referring Physician: Melita Story [address], [address] [place], [place] [address] Exam: MR Thigh Unilat (C-) CPT 60339 - Right Room Description: [facility] 3.0T MRI RIGHT THIGH HISTORY: Pain FINDINGS: Right hamstring tendon rupture with approximately 2 cm of retraction. Adductor art tendon is intact Remaining thigh musculature is normal. Normal femur . No marrow edema or focal lesion. Incidental left Reyes's cyst. Small right patellofemoral osteophytes IMPRESSION: Hamstring tendon rupture. Other incidental findings are outlined above Electronically Signed By: Ludin Story PA-C [address], [place], [address], [facility] 06/09/2024 13:29:47 Problems Name Problem SNOMED Code Status Onset Date Resolution Date Notes Provider Name and Address Organization Details Recorded Time Impingement syndrome of left shoulder region 3157830767551 04 Active 2023 Melita Story PA-C [address], [place], [address], [facility] 4 13:28:11 Impingement syndrome of right shoulder region 5196862239405 02 Active 2023 Melitacara Story, PA-C [address], [place], [address], [facility] 4 13:19:39 Pain of right hip joint 5011624670561 02 [facility] 4 13:34:24 Trochanteri c bursitis of right hip 3329523941251 00 Active 2023 Melitacara Story, PA-C [address], [facility] [place], [address], [facility] 4 14:43:55 Problem Notes None recorded. Procedures Surgical History Date Name Laterality Status Provider Name and Address Organization Details Recorded Time 5 Sports Shoulder Bilateral completed Melita Revandreina, PA-C [address], [place], [address], [facility] 11/10/2024 16:03:34 4 Sports Shoulder completed Melita Revandreina, PA-C [address], [place], [address], [facility] 06/21/2024 09:11:20 4 Hip Kenalog 1cc Injection, L/R completed Melita Revandreina, PA-C [address], [place], [address], [facility] 04/05/2024 14:43:26 4 Sports Shoulder Bilateral completed Melita Revandreina, PA-C [address], [place], [address], [facility] 02/29/2024 13:19:27 Imaging Results None recorded. Procedure Notes None recorded. Medical Equipment None Reported. Allergies Allergen ID Allergen Name Allergen Category Reaction Reaction Severity Criticality Documentation Date Start Date Code Code System Note Provider Name and Address Organization Details Recorded Time 621291 Naprosyn medicatio n Not available Not available Not available 02/29/2024 2 RxNorm Britany Caldwell fabian [place] - [facility] 13:13:23 894699 naproxen medicatio n abdominal pain severe Not available 04/05/20242022 7258 RxNorm Lizette Galdamezjanice peralta [place] - [facility] 13:32:56 66004 oxycodone hydrochlo ride medicatio n Not available Not available Not available 09/07/20232022 09987 RxNorm Not Available Critical access hospital 12:31:57 Medications Name Sig Start Date Stop Date Status Note LastModified by Organization Details LastModified Time polymyxin B sulfate 10,000 unit-trimet hoprim 1 mg/mL eye drops TAKE 1 (OPHTHALM IC (EYE)) 4 TIMES PER DAY FOR 7 DAYS active Not Available Not Available No t Available bupropion HCl 75 mg tablet TAKE 1 TABLET BY MOUTH 2 TIMES DAILY FOR 180 DAYS. 05/18 completed Not Available Not Available Not Available sertraline 25 mg tablet TAKE 1 TABLET BY MOUTH 1 TIME EACH DAY. active Not Available Not Available No t Available nystatin 100,000 unit/gram topical powder APPLY TO GROIN 1-2 TIMES PER DAY TO TREAT / PREVENT TINEA INFECTION active Not Available Not Available No t Available ketoconazol e 2 % topical cream PLEASE SEE ATTACHED FOR DETAILED DIRECTION S 05/18 completed Not Available Not Available Not Available hydroxyzine HCl 10 mg tablet TAKE 1 TABLET BY MOUTH THREE TIMES A DAY NEEDED FOR ANXIETY 05/18 completed Not Available Not Available Not Available sertraline 50 mg tablet TAKE 1 TABLET BY MOUTH 1 TIME EACH DAY. active Not Available Not Available No t Available PreviDent 5000 Dry Mouth 1.1 % dental paste APPLY THINK RIBBON TO TOOTHBRUS H. BRUSH FOR 2 MINS AT BEDTIME, DO NOT EAT/DRINK /RINSE FOR 30 MINS. active Not Available Not Available No t Available Vitals Date Recorded Body height Body mass index (BMI) Body weight Provider Name and Address Organization Details Last Updated DateTime 07/07/2024 160.02 cm 21.3 kg/m2 12153.08 g ANIYA ADRI [facility] 07/07/2024 08:50:04 Date Recorded Body height Body mass index (BMI) Body weight Provider Name and Address Organization Details Last Updated DateTime 11/10/2024 160.02 cm 21.3 kg/m2 93431.08 g RUBEN WOODWARD [facility] 11/10/2024 15:53:24 Date Recorded Body height Body mass index (BMI) Body weight Provider Name and Address Organization Details Last Updated DateTime 04/05/2024 162.56 cm 20.6 kg/m2 47914.08 g Lizette Clancy [facility] 04/05/2024 13:33:14 Date Recorded Body height Body mass index (BMI) Body weight Provider Name and Address Organization Details Last Updated DateTime 05/21/2024 162.56 cm 20.6 kg/m2 22154.08 g SHANNON YOUNG [facility] 05/21/2024 11:02:40 Date Recorded Body height Provider Name an d Address Organization Details Last Updated DateTime 06/21/2024 162.56 cm LIZETTE HANLEY [facility] 06/21/2024 08:53:28 Social History Question Answer Notes LastModified by [employer] Details LastModified Time Tobacco Smoking Status Never Smoker RUBEN WOODWARD [facility] 11/09/2024 14:34:04 What Is Your Relationship Status? Information not available 11/09/2024 Sex: Unknown Functional Status Question Answer Note LastModified by [employer] Details LastModified Time Do you use any illicit or recreational drugs? No Information not available 11/09/2024 Do you or have you ever used any other forms of tobacco or nicotine? No Information not available 11/09/2024 What is your level of alcohol consumption? None Information not available 11/09/2024 Mental Status None recorded. Family History Nothing Reported. Medical History Condition Response Coronary Artery Disease N Anxiety/Depression N Emphysema N COPD N Pacemaker N Vascular Disease N Heart Trouble N Gastrointestinal Disease N Autoimmune disease N Inflammatory Joint disease N Orthotics N Arthritis Y Blood Clot N Acid Reflux (GERD) N Cancer N Stroke N Circulation Problems N Rheumatoid Arthritis N Arrhythmia N Headaches N Fibromyalgia N Allergies/Hayfever N Breathing or lung disorders N Nerve Disorders N Thyroid Problems N Kidney/Bladder Problems N Anemia N Heart Attack (CT) N Cholesterol N Diabetes N Bleeding Disorder N Seizures/Epilepsy N AIDS/HIV N Congestive Heart Failure (CHF) N Asthma N Peripheral Vascular Disease N Sleep Apnea N Hepatitis N Heart Disease N Pulmonary Embolism N Hypertension N Osteoporosis N Gynecological HistoryNo gynecological history recorded. Obstetrics History GPAL:G 0 P 0 0 0 0 Past Encounters Encounter ID Performer Location Encounter Start Date Encounter Closed Date Diagnosis/Indication Diagnosis SNOMED-CT Code Diagnosis ICD10 Code Diagnosis IMO Codes Diagnosis Note [id number] MARC[facility] Roach [address] [place] [address] 02/29/2024 12:57:07 03/28/2024 12:39:32 Impingement syndrome of left shoulder region 4199920548 59064 M75.42 PLANThe patient has done well with conservati ve management in regards to the shoulder with good clinical response to injections in the past. Recommend continued conservati ve management with repeat injection( s) today. Moderating activities with the upper extremity recommende d also. See procedure notes for injection details. Impingemen t syndrome of right shoulder region 2488421737 52338 M75.41 [id number] MARC[facility] Ro[facility] [address] [place] [address] 04/05/2024 13:23:24 05/02/2024 12:54:12 Pain of right hip joint 5003378386 12814 M25.551 Trochanter ic bursitis of right hip 6842950358 64269 M70.61 PLAN I reviewed imaging and examinatio n findings in detail with the patient. Discussed different treatment options which include oral anti-infla mmatory medication s, physical therapy, home exercise/s tretching program and injections . The patient wishes to proceed with cortisone injection today. Discussed injections can be repeated as often as every 3 months. Recommend formal physical therapy for IT band stretching , abductor strengthen ing, soft tissue modalities and foam rolling. Patient declines. Therefore handout with home exercise program was provided today. Patient will follow up on an as needed basis as symptoms dictate moving forward. All questions and concerns were addressed and answered. [id number] MARCOS Roach [address] [place] [address] 05/21/2024 10:50:59 06/17/2024 10:36:54 Hamstring injury 794399324 S76.319A [id number] Reviewed patient's imaging and exam findings in detail with her. She had an acute injury where she felt a pop with subsequent pain localized to the proximal hamstring insertion. She does have slightly decreased continuity of the hamstring insertion of the right compared to the left suggesting perhaps a partial-th ickness tear. Although this would recommend obtaining MRI of the proximal thigh to evaluate for proximal hamstring rupture versus strain versus partial-th ickness tear. She should follow-up to review the results and discuss further treatment options. In the meantime avoid any heavy lifting from ground-lev el, bending over and going up stairs or uphill climbing. [id number] MARCOS Roach [address] [place] [address] 06/21/2024 08:51:55 07/12/2024 14:45:21 Impingement syndrome of left shoulder region 2443549117 17640 M75.42 PLANThe patient has done well with conservati ve management in regards to the shoulder with good clinical response to injections in the past. Recommend continued conservati ve management with repeat injection( s) today. Moderating activities with the upper extremity recommende d also. See procedure notes for injection details. [id number] MD VI Olivares [address] [place] [address] 07/07/2024 08:36:11 07/21/2024 10:36:25 Rupture of hamstring tendon 992224964 S76.311A [id number] MARCOS Roach [address] floor [address] [place] [address] 11/10/2024 15:44:24 11/30/2024 09:12:11 Impingement syndrome of left shoulder region 8316651245 90506 M75.42 PLAN:Agustin toth of the diagnosis discussed with the patient today. They are having an acute exacerbati on of symptoms including pain, swelling and difficulty participat ing in ADL's. Both surgical and nonsurgica l options were reviewed. Conservati ve treatment options including activity modificati on, exercise program, physical therapy, NSAIDs, and injections were discussed. At this point patient elects to move forward with a repeat cortisone injection. Patient tolerated the procedure well. Post injection precaution s reviewed. They will continue with conservati ve modalities including rest and icing. Follow-up with us as symptoms dictate for discussion of continued conservati ve management options versus operative interventi on. See procedure notes for injection details. Impingemen t syndrome of right shoulder region 4977348550 92779 M75.41 Health Concerns Section Related Observation LastModified by Organization Detai ls LastModified Time None Recorded Concern Status LastModified by Organization Details LastModified Time None Recorded Advance Directives Directive None Recorded Payers Insurance Date Sequence Insurance Name Policy Number Policy Morris Covered Member ID Morris Member ID Guarantor Name 02/14/2025 1 [place] [place] [place]) [id number] Vanessa Sherman [id number] Vanessa Sherman Notes Date Note Type Note Provider Name and Address Organization Details Recorded Time 04/05/2024 text/html ROS as noted in the HPI I am seeing the patient under the general supervision of Dr. Harrington who was available but who did not see the patient. Patient is a 58 year old female who presents today with chief complaint of right hip pain. Reports that she has had intermittant pain for the last 6-7 months. 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 Notices the pain when she sits for too long. Does not have any pain at night sleeping on her side. Jet any groin pain. Localizes pain to the posterior lateral buttock. No numbness, tingling or radicular symptoms. Feels as though it is tight. DIAGNOSTIC IMAGIN view right hip radiographs were ordered, obtained and independently reviewed by myself during today's visit at [facility] and demonstrate well-preserved femoral acetabular joint space. No fracture or dislocation. No substantial degenerative changes. Melitamelissa Story PA-C [address], [place], [address], [facility] 04/05/2024 14:44:18 05/21/2024 text/html ROS as noted in the HPI I am seeing the patient under the general supervision of Dr. Harrington who was available but who did not see the patient. Patient is a 58 year old female who presents today with chief complaint of right hip pain. She states that the troch bursitis symptoms are mildly improved but injection wasn't all that helpful. However 4 weeks ago she sustained an acute injury when she was going up the stairs. She tripped going up the stairs and felt a pop to the back of her thigh in the region of ther hamstring insertion. Since then she has had severe pain with sitting on it, walking, or with larger strides localized to the posterior thigh which is very achy. She felt that initially she could not sit on this region and felt that there was a defect or something preventing direct pressure on the area. Melita Story PA-C [address], [place], [address], [facility] 05/21/2024 11:30:17 06/21/2024 text/html ROS as noted in the HPI I am seeing the patient under the general supervision of Dr. Harrington who was available but who did not see the patient. History of Present Illness:Patient comes to the office with known history of subacromial impingement of the left shoulder(s). The patient has done well with conservative management for their shoulder pain with good clinical response to cortisone injections in the past. Reports recently increasing discomfort over the past several weeks with no new injury or trauma. Pain is generalized about the shoulder and discomfort is worst at night. Last injections were 02/29/24. 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 Gets injections one every year or so with adequate relief. Melita Story PA-C [address], [place], [address], [facility] 06/21/2024 09:11:45 11/10/2024 text/html ROS as noted in the HPI I am seeing the patient under the general supervision of Dr. Harrington who was available but who did not see the patient. History of Present Illness: Patient comes to the office with known history of subacromial impingement of the Bilateral shoulder(s). The patient has done well with conservative management for their shoulder pain with good clinical response to cortisone injections in the past. Reports recently increasing discomfort over the past several weeks with no new injury or trauma. Pain is generalized about the shoulder and discomfort is worst at night. Last injections were 06/21/24 to the left shoulder. Melita Story PA-C [address], [place], [address], [facility] 11/10/2024 16:04:07 OBGyn Episode No OBEpisode recorded.
--- OUTSIDE RECORDS SUMMARY | 2025-06-13 20:56 | XMS_ITS | Encounter Summary ---
Author Organization [email or web address] [facility] Prior to 05/06/2024 Address [address] [place] [address] Care Team Providers Care Applied Statistician Name Role Phone Kelsy Ruth MD Primary Care Provider [facility] Trace Bray MD Primary Care Provider [phone] [phone] Encounter Details Date Type Department Care Team Description 12/23/2018 Agency Appointments Supervisor Report Medical Records [address] [place] [address] Arpan Phillips MD Social History Tobacco Use Types Packs/Day [...] on filedocumented in this encounter Care Teams Applied Statistician Relationship Specialty Start Date End Date Kelsy Ruth MD PCP - General 08/17/10 12/24/20 Trace Bray MD [address] [place], [place] PCP - General Internal Medicine 12/25/20 documented as of this encounter
--- OUTSIDE RECORDS SUMMARY | 2025-06-13 20:56 | XMS_ITS | Continuity of Care Document ---
Author Organization [place] [facility]da Alonzo [place] [place] Address [address] [address] Care Team Providers Care Bi Data Architect Name Role Phone NINA GARCIA Primary Care Provide r NINA GARCIA Referring Provider Assessment Encounter Date Assessment Date Assessment LastModified by Organization Details LastModified Time 04/27/2025 04/27/2025 IMPRESSION: 59-year-old woman with right hand base of fifth metatarsal fracture nondisplaced date of injury 02/28/2025 Left patella fracture nondisplaced date of injury 02/28/2025 PLAN: Vanessa is doing fantastic. At this point she may discontinue use of the brace and she may return back to work full duty. Should she have any questions or concerns she is not hesitate to call the office otherwise she may follow-up on an as-needed basis. Patient was in agreement the plan. PRIOR AR 03-29-25 Patient is doing well from her patellar [...] may remain out of work. Not available 04/27/2025 10:44:07 Plan of Treatment Reminders Order Date Submit Date Provider Last Modified By Organization Details Last Modified Time Details Appointments None record ed. Lab None record ed. Referral None record ed. Procedures None record ed. Surgeries None record ed. Imaging XR, knee, 1 or 2 view 025 04/27/20 25 [email or web address] 8 [facility], [address], [place], [address], 12:41:43 Medication Orders None record ed. Patient TargetsNo targets recorded. Patient Instructions Encounter Date Encounter Id Patient Instructions Last Modified By Organization Details Last Modified Time 04/27/2025 [id number] views of the left knee were obtained demonstrate unchanged alignment interval healing with respect to her patella fracture. Not available 04/27/2025 10:44:23 Reason for Referral None Reported. Problems Name Problem SNOMED Code Status Onset Date Resolution Date Notes Provider Name and Address Organization Details Recorded Time Closed fracture of patella 66962366 Active 2024 Fran Delarosa MD [address], [place], [address] , [place] [facility], P 5 10:07:19 Closed fracture of base of fifth metacarpal bone of right hand 1303141588633 9108 Active 2024 Fran Delarosa MD [address], [place], [address] , [place] [facility], P 5 10:07:49 Pain of right hand 4129143113465 09 Active 2024 Fran Delarosa MD [address], [place], [address] , [place] [facility], P 5 10:40:22 Pain of left knee region 2450231962284 09 Active 2024 Fran Delarosa MD [address], [place], [address] , [place] [facility], P 5 10:40:22 Problem Notes None recorded. Procedures Surgical History Date Name Laterality Status Provider Name and Address Organization Details Recorded Time operative procedure on knee completed Pending sale to [facility] 03/15/2025 16:02:45 operation on vertebra completed [facility] 03/15/2025 16:03:04 Imaging Results None recorded. Procedure Notes None recorded. Medical Equipment None Reported. Allergies Allergen ID Allergen Name Allergen Category Reaction Reaction Severity Criticality Documentation Date Start Date Code Code System Note Provider Name and Address Organization Details Recorded Time 677896 terbinafi ne medicatio n Not available Not available Not available 05/25/2025 44679 RxNorm Not Available [facility] - External Data [employer] - prod 5 10:10:05 119469 ibuprofen medicatio n Not available Not available Not available 05/25/20252023 5640 RxNorm GI Probl ems Not Available [facility] - External Data Service - prod 5 10:10:10 707096 Naprosyn medicatio n Not available Not available Not available 05/25/2025 50151 2 RxNorm Not Available [employer] - External Data Service - prod 5 10:12:11 811857 oxycodone hydrochlo ride medicatio n Not available Not available Not available 05/25/20252022 36236 RxNorm Not Available [facility] - External Data Service - prod 5 10:12:11 609594 naproxen sodium medicatio n Not available Not available Not available 05/25/20252024 33788 2 RxNorm Not Available [facility] External Data Service - prod 5 10:12:13 966561 terbinafi ne hydrochlo ride medicatio n other Not available Not available 05/25/20252010 66281 8 RxNorm Loss of taste Not Available [facility] External Data Service - prod 5 10:12:13 95746 Lamisil medicatio n other moderate Not available 03/08/2025 85340 6 RxNorm Edmundo Malick [place], [place] - [facility], P 5 10:34:54 96146 naproxen medicatio n Not available Not available Not available 03/15/2025 7258 RxNorm Coco [place], [place] - [facility], P 5 15:47:06 Medications Name Sig Start [...] MRSA N Blood Transfusion N Emphysema N Depression N COPD N Hypothyroidism N Pacemaker N Vascular Disease N Gastrointestinal Disease N Anxiety Disorder N Autoimmune disease N Arthritis Y Cancer N Stroke N High Cholesterol N Neurologic Disorder N Liver Disease N Organ Transplant N Rheumatoid Arthritis N Arrhythmia N Fibromyalgia N Kidney Disease N Allergies/Hayfever Y Adverse Reaction to Anesthesia N Thyroid Problems N Anemia N Brain Injury N Heart Attack ([place]) N Osteopenia N Diabetes N Bleeding Disorder [...] ICD10 Code Diagnosis IMO Codes Diagnosis Note [id number] MD ADONAY Little [address] [address] 03/29/2025 09:19:15 03/29/2025 10:05:26 Closed fracture of patella 39854703 S82.002A [id number] Pain of le ft knee region 4392466616 78854 M25.562 28079502 Pain of right hand 51629 66144 63161 M79.699 7641985 Closed fra cture of base of fifth metacarpal bone of right hand 3847469175 7418011 S62.346A [id number] MD SAUNDRA [address] [address] 04/14/2025 09:56:29 04/14/2025 11:46:03 Closed fracture of base of fifth metacarpal bone of right hand 4341963264 8654316 S62.346A [id number] Fran Delarosa MD [address] [place] [address] 04/27/2025 10:23:10 04/27/2025 12:41:43 Closed fracture of patella 26356871 S82.002A 841202631 Pain of le ft knee region 2225853288 03182 M25.562 59486281 Pain of right hand 19806 68681 90919 M79.991 0476246 Closed fra cture of base of fifth metacarpal bone of right hand 4325705583 5706168 S62.346A [id number] Health Concerns Section Related Observation LastModified by Organization Detai ls LastModified Time None Recorded Concern Status LastModified by Organization Details LastModified Time None Recorded Payers Encounter Date Sequence Insurance Name Policy Number Policy Morris Covered Member ID Morris Member ID Guarantor Name 04/27/[address] [facility] [employer] [id number] [id number] Vanessa Sherman Notes Date Note Type Note Provider Name and Address Organization Details Recorded Time 04/27/2025 text/html ROS as noted in the HPI Vanessa returns to the office today she is 2 months removed from her injury she is doing great she has no pain. She has full range of motion with respect to her left knee. PRIOR AR [id number] returns to the office today. She is 4 weeks removed from her patella fracture. She is doing well and not 100% but feeling improvements week to week. [place] [id number] d woman presenting with multiple injuries following [...] right hand. 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 Fran Delarosa MD [address], [place], [address], [place] [facility] 04/27/2025 10:44:46 OBGyn Episode No OBEpisode recorded.
--- OUTSIDE RECORDS SUMMARY | 2025-06-13 20:56 | XMS_ITS | Encounter Summary ---
Author Organization [employer] [facility] Prior to 05/06/2024 Address [address] [place] [address] Care Team Providers Care Agricultural Production Engineer Name Role Phone Kelsy Ruth MD Primary Care Provider [facility] paula Bray Ch MD Primary Care Provider [phone] Encounter Details Date Type Department Care Team Description 12/29/2011 Formulation Technician Report Medical Records [address] [place] [address] Yazan Griggs Social History Tobacco Use Types Packs/Day Years Used Date Smoking Tobacco: Every Day Cigarettes 1 20 Smokeless Tobacco: Never Alcohol Use Standard Drinks/Week Comments No 0 (1 standard drink = 0.6 oz pur e alcohol) alcohol abuse until 2002 Alcohol Habits Answer Date Recorded How often [...] on filedocumented in this encounter Care Teams Agricultural Production Engineer Relationship Specialty Start Date End Date Kelsy Ruth MD PCP - General 08/17/10 12/24/20 Trace Bray MD [address] [place] [address] PCP - General Internal Medicine 12/25/20 documented as of this encounter
--- OUTSIDE RECORDS SUMMARY | 2025-06-13 20:56 | XMS_ITS | Encounter Summary ---
Author Organization [employer] [facility] Prior to 05/06/2024 Address [address] [place] [address] Care Team Providers Care Medical Sales Name Role Phone Kelsy Ruth MD Primary Care Provider [facility] Trace Bray MD Primary Care Provider [phone] Encounter Details Date Type Department Care Team Description 12/23/2018 Luncheonette Operator Report Medical Records [address] [place] [address] Arpan Phillips MD Social History Tobacco Use [...] on filedocumented in this encounter Care Teams Medical Sales Relationship Specialty Start Date End Date Kelsy Ruth MD PCP - General 08/17/10 12/24/20 Trace Bray MD [address] [place], [place] PCP - General Internal Medicine 12/25/20 documented as of this encounter
--- OUTSIDE RECORDS SUMMARY | 2025-06-13 20:56 | XMS_ITS | Encounter Summary ---
Author Organization [facility] Prior to 05/06/2024 Address [address] [place] [address] Care Team Providers Care Staffing Coordinator Name Role Phone Kelsy Ruth MD Primary Care Provider [facility] Trace Bray MD Primary Care Provider [phone] [phone] Encounter Details Date Type Department Care Team Description 11/26/2018 [facility] Medical Records [address] [place] [address] Arpan Phillips MD Social History Tobacco Use [...] on filedocumented in this encounter Care Teams Staffing Coordinator Relationship Specialty Start Date End Date Kelsy Ruth MD PCP - General 08/17/10 12/24/20 Trace Bray MD [address] [place] [address] PCP - General Internal Medicine 12/25/20 documented as of this encounter
--- OUTSIDE RECORDS SUMMARY | 2025-06-13 20:56 | XMS_ITS | Encounter Summary ---
Author Organization [employer] [facility] Prior to 05/06/2024 Address [address] [place] [address] Care Team Providers Care Cdl A Driver Name Role Phone Trace Bray MD Primary Care Provider [phone] [phone] Encounter Details Date Type Department Care Team Description 05/13/2022 Roller Operator Report Medical Records [address] [place] [address] Melita Story Social History Tobacco Use Types Packs/Day Years [...] on filedocumented in this encounter Care Teams Cdl A Driver Relationship Specialty Start Date End Date Trace Bray MD [address] [place], [place] PCP - General Internal Medicine 12/25/20 documented as of this encounter
--- OUTSIDE RECORDS SUMMARY | 2025-06-13 20:56 | XMS_ITS | Encounter Summary ---
Author Organization [facility] Prior to 05/06/2024 Address [address] [place] [address] Care Team Providers Care Primary Care Sales Representative Name Role Phone Kelsy Ruth MD Primary Care Provider [facility] Trace Bray MD Primary Care Provider [phone] [phone] Encounter Details Date Type Department Care Team Description 03/01/2019 Plastic Cnc Machine Operator Report Medical Records [address] [place] [address] Marcelo Norman MD Social History Tobacco Use Types Packs/Day [...] on filedocumented in this encounter Care Teams Primary Care Sales Representative Relationship Specialty Start Date End Date Kelsy Ruth MD PCP - General 08/17/10 12/24/20 Trace Bray MD [address] [place], [place] PCP - General Internal Medicine 12/25/20 documented as of this encounter
--- OUTSIDE RECORDS SUMMARY | 2025-06-13 20:57 | XMS_ITS | Encounter Summary ---
Author Organization [facility] [facility] Prior to 05/06/2024 Address [address] [place] [address] Care Team Providers Care Concert Pianist Name Role Phone Trace Bray MD Primary Care Provider [phone] [phone] Encounter Details Date Type Department Care Team Description 08/28/2021 Orders Only Medical Records [address] [place] [address] Pat Herrera MD [address] [place] [address] Social History Tobacco Use Types Packs/Day Years [...] Name Priority Date/Time Associated Diagnosis Comments OUTSIDE LAB Routine 08/27/2021 documented in this encounter Results * OUTSIDE LAB (08/27/2021) Pat Herrera MD LAB documented in this encounter Visit Diagnoses Not on filedocumented in this encounter Care Teams Concert Pianist Relationship Specialty Start Date End Date Trace Bray MD [address] [place] [address] PCP - General Internal Medicine 12/25/20 documented as of this encounter
--- OUTSIDE RECORDS SUMMARY | 2025-06-13 20:57 | XMS_ITS | Data Portability ---
Author Organization [place] [facility] Griselda Alonzo AONE [place] Address [address] [place] [address] Care Team Providers Care Waste Chopper Name Role Phone NINA GARCIA Primary Care Provide r NINA GARCIA Referring Provider Assessment Encounter Date Assessment Date Assessment LastModified by Organization Details LastModified Time 03/01/2025 03/01/2025 IMPRESSION: 59-year-old woman with right hand base of fifth metatarsal fracture nondisplaced date of injury 02/28/2025 Left patella fracture nondisplaced date of injury 02/28/2025 PLAN: I discussed the treatment options with the [...] interim she may remain out of work. dwain Not available 03/01/2025 10:06:13 03/08/2025 03/08/2025 The above findin gs were discussed in detail with patient. She is evidence of a right fifth metacarpal base fracture which is nondisplaced, 1 week from injury. Pathology and expected prognosis were discussed. Treatment options include continued nonoperative treatment with immobilization for 6 weeks total. She would like to continue with a removable wrist splint. She will wear this full-time for the next 5 weeks, she can come out of it for showering hygiene. In 3 weeks, she can, the splint when she is at rest for gentle active wrist range of motion. She will work on finger range of motion while in the splint. She will lift nothing heavier than 5 pounds, no pushing or pulling. She can continue with elevation and ice and anti-inflammatorie s as needed. She will follow-up with me in 5 weeks for repeat evaluation, new x-rays and transition out of splint. All of her questions were answered, she is in agreement the plan. alan Not available 03/08/2025 12:55:18 03/29/2025 03/29/2025 IMPRESSION: 59-year-old woman with right [...] interim she may remain out of work. dwain Not available 04/04/2025 10:42:10 04/14/2025 04/14/2025 The above findin gs were discussed in detail the patient. She is 6 weeks from right fifth metacarpal base fracture being treated nonoperatively. X-rays demonstrate interval healing today. Clinically she is improving. She can wean out of her brace and start to work on active and passive range of motion of the wrist and fingers as well as progressive weightbearing. She is cleared to go back to work from hand perspective however will likely still be out from the knee. She can return to see me as needed. All of her questions were answered, she is in agreement the plan. alan Not available 04/18/2025 08:48:33 04/27/2025 04/27/2025 IMPRESSION: 59-year-old woman with right [...] XR, knee, 1 or 2 view 025 025 [email or web address] [facility], [address], [place], [address], 10/23/202 5 12:41:43 XR, hand, 3 or more view 025 025 [facility], [address], [place], [address], 5 16:29:05 XR, knee, 1 or 2 view 025 025 [facility], [address], [place], [address], 5 15:54:07 XR, hand, 3 or more view 025 [facility], [address], [place], [address], 5 17:01:26 XR, hand, 3 or more view 025 025 [facility], [address], [place], [address], 5 11:09:14 XR, knee, 4 or more view 025 025 [facility], [address], [place], [address], 5 11:09:14 Medication Orders None record ed. Patient TargetsNo targets recorded. Patient Instructions Encounter Date Encounter Id Patient Instructions Last Modified By Organization Details Last Modified Time 03/01/2025 [id number] views of the l eft knee were obtained demonstrate nondisplaced fracture of the patella transverse and vertical component portion there is evidence of bone infarct in the tibia appears to be incidental finding. There is no displacement related to patella fracture. 3 views of the right hand were obtained demonstrate nondisplaced fracture at the base of the fifth metacarpal Not available 03/01/2025 10:08:44 03/08/2025 [id number] views of the right hand were ordered and reviewed today, demonstrates nondisplaced fifth metacarpal base fracture which is extra-articular. There is no significant displacement since last x-ray. There are arthritic changes at the middle finger MP and PIP joints, no acute finding. lschindelar Not available 03/08/2025 12:53:47 03/29/2025 [id number] 3 views of the l eft knee were obtained demonstrate nondisplaced fracture of the patella transverse and vertical component portion unchanged alignment noted callus formation and interval healing noted of the patella fracture Not available 04/04/2025 10:42:00 04/14/2025 [id number] 3 views of the right hand were ordered and reviewed today, demonstrates fifth metacarpal base fracture with interval callus formation. There is anatomic alignment. Mild diffuse demineralization of the bones. lschindelar Not available 04/18/2025 08:47:49 04/27/2025 [id number] 2 views of the l eft knee were obtained demonstrate unchanged alignment interval healing with respect to her patella fracture. Not available 04/27/2025 10:44:23 Reason for Referral None Reported. Problems Name Problem SNOMED Code Status Onset Date Resolution Date Notes Provider Name and Address Organization Details Recorded Time Closed fracture of patella 14911233 Active [address], [place], [address] , [place] [facility] 5 10:07:19 Closed fracture of base of fifth metacarpal bone of right hand 0121799959467 9108 Active [address], [place], [address] , [place] [facility] 5 10:07:49 Pain of right hand 5876616911402 09 Active [address], [place], [address] , [place] [facility] 5 10:40:22 Pain of left knee region 4299875381888 09 Active [address], [place], [address] , [place] [facility] 5 10:40:22 Problem Notes None recorded. Procedures Surgical History Date Name Laterality Status Provider Name and Address Organization Details Recorded Time operative procedure on knee completed [facility] 03/15/2025 16:02:45 operation on vertebra completed [facility] 03/15/2025 16:03:04 Imaging Results None recorded. Procedure Notes None recorded. Medical Equipment None Reported. Allergies Allergen ID Allergen Name Allergen Category Reaction Reaction Severity Criticality Documentation Date Start Date Code Code System Note Provider Name and Address Organization Details Recorded Time 921340 terbinafi ne medicatio n Not available Not available Not available 05/25/2025 87679 RxNorm Not Available [employer] - prod 5 10:10:05 164894 ibuprofen medicatio n Not available Not available Not available 05/25/20252023 5640 RxNorm GI Probl ems Not Available [employer] - prod 5 10:10:10 175922 Naprosyn medicatio n Not available Not available Not available 05/25/202520291 2 RxNorm Not Available [employer] - prod 5 10:12:11 028499 oxycodone hydrochlo ride medicatio n Not available Not available Not available 05/25/20252022 05815 RxNorm Not Available [employer] - prod 5 10:12:11 053113 naproxen sodium medicatio n Not available Not available Not available 05/25/20252024 68041 2 RxNorm Not Available [employer] - prod 5 10:12:13 110458 terbinafi ne hydrochlo ride medicatio n other Not available Not available 05/25/20252010 44296 8 RxNorm Loss of taste Not Available [employer] - prod 5 10:12:13 47014 Lamisil medicatio n other moderate Not available 03/08/2025 00329 6 RxNorm Edmundo [place]alta, [place] - [facility], [facility] 5 10:34:54 22654 naproxen medicatio n Not available Not available Not available 03/15/2025 7258 RxNorm Coco Orourke fabian, [facility] 5 15:47:06 Medications Name Sig Start [...] and Address Organization Details Last Updated DateTime 03/08/2025 162.56 cm 20.4 kg/m2 45807.49 g Coco Saturninowagner [facility] 03/15/2025 16:00:57 Date Recorded Body height Provider Name an d Address Organization Details Last Updated DateTime 04/14/2025 162.56 cm Edmundo Teresa [facility] 04/14/2025 09:58:09 Social History None recorded. Functional Status Question [...] Anemia N Brain Injury N Heart Attack ([place]) N Osteopenia N Diabetes N Bleeding Disorder [...] ICD10 Code Diagnosis IMO Codes Diagnosis Note [id number] Fran Delarosa MD [facility] [address] [place] [address] [address] [place] [address] 03/01/2025 09:24:55 03/01/2025 10:20:17 Pain of left knee region 0328759102 93896 M25.562 23246568 Pain of right hand [address] 28215 73665 M79.583 3332166 Closed fra cture of patella 37295412 S82.002A 338722263 Closed fra cture of base of fifth metacarpal bone of right hand 9282393337 4039227 S62.346A 9760331 [id number] Macarena Dillon MD [address] [place] [address] 03/08/2025 10:28:00 03/08/2025 12:03:29 Pain of right hand 6756786069 44940 M79.331 8269674 Closed fra cture of base of fifth metacarpal bone of right hand 8379196437 6944658 S62.346A 3037203 292222 Fran Delarosa MD [facility] [place] [address] [address] 03/29/2025 09:19:15 03/29/2025 10:05:26 Closed fracture of patella 37104693 S82.002A 056311360 Pain of le ft knee region 6305594682 02103 M25.562 05700675 Pain of right hand 07820 91328 02102 M79.277 7807900 Closed fra cture of base of fifth metacarpal bone of right hand 9335815435 7724485 S62.346A 9031186 205106 Macarena Dillon MD [address] [address] 04/14/2025 09:56:29 04/14/2025 11:46:03 Closed fracture of base of fifth metacarpal bone of right hand 1096681970 1973942 S62.346A 4850481 [id number] Fran Delarosa MD [address] [address] 04/27/2025 10:23:10 04/27/2025 12:41:43 Closed fracture of patella 40558457 S82.002A 348501258 Pain of le ft knee region 1249918814 70535 M25.562 31533642 Pain of right hand 63853 41967 73889 M79.941 5066688 Closed fra cture of base of fifth metacarpal bone of right hand 3934858822 7170398 S62.346A 9509336 Health Concerns Section Related Observation LastModified by Organization Detai ls LastModified Time None Recorded Concern Status LastModified by Organization Details LastModified Time None Recorded Advance Directives Directive None Recorded Payers Insurance Date Sequence Insurance Name Policy Number Policy Morris Covered Member ID Morris Member ID Guarantor Name 04/24/2025 1 [place] [employer] [place] [employer] [id number] Vanessa Sherman [id number] Vanessa Sherman Notes Date Note Type Note Provider Name and Address Organization Details Recorded Time 03/01/2025 text/html ROS as noted in the HPI 59-year-old woman presenting with multiple injuries following a [...] right hand. She works as a [employer] worker. MD [address], [place], [address], [place] [facility] 03/01/2025 10:09:03 03/08/2025 text/html ROS as noted in the HPI This is a 59-year-old [id number] female who presents with a right fifth metacarpal base fracture which occurred on 02/28/2025 when she fell. She was seen the following day at our walk-in clinic by Dr. Delarosa, x-rays were taken and she was diagnosed with a nondisplaced fifth metacarpal base fracture and a left nondisplaced patella fracture. She was placed in an ulnar gutter splint and told to follow-up. She has been compliant with splint wear and nonweightbearing restrictions. She notes her pain is improved. She been working on finger range of motion. She denies pain elsewhere. She denies prior history of injury to the hand before. MD [address]ik [address], [place], [address], [facility] - [facility], [facility] 03/08/2025 12:55:36 03/29/2025 text/html ROS as noted in the HPI Patient returns to the office today. She is 4 weeks removed from her patella fracture. She is doing well and not 100% but feeling improvements week to week. [place] [id number] woman presenting with multiple injuries following a trip and fall while walking her dogs last night she sustained a right hand injury and a left knee injury. Since then she has had difficulty straightening her leg and lifting it. She still able to ambulate though it is difficult additionally she has significant swelling with respect to her right hand. 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 MD [address], [place], [address], [place] [facility] 04/04/2025 10:43:29 04/14/2025 text/html ROS as noted in the HPI She presents for follow-up of her right fifth metacarpal base fracture, date of injury , she is about 6 weeks from injury. She has been compliant with splint wear and nonweightbearing restrictions. She has been working on gentle active range of motion. She notes no pain. Is also being treated for a patella fracture on the left side. MD [address]ik [address], [place], [address], [place] [facility] 04/18/2025 08:49:07 04/27/2025 text/html ROS as noted in the HPI Vanessa returns to the office today she is 2 months removed from her injury she is doing great she has no pain. She has full range of motion with respect to her left knee. [place] AR [id number] returns to the office today. She is 4 weeks removed from her patella fracture. She is doing well and not 100% but feeling improvements week to week. [place] [id number] woman presenting with multiple injuries following a [...] right hand. She works as a [place] [employer] worker. MD [address], [place], [address], [place] [facility] 04/27/2025 10:44:46 OBGyn Episode No OBEpisode recorded.
--- OUTSIDE RECORDS SUMMARY | 2025-06-13 20:57 | XMS_ITS | Continuity of Care Document ---
Author Organization [place] [facility] Griselda Alonzo AONE [place] Address [address] [facility] [address] [place] [address] Care Team Providers Care Medical Records Assistant Name Role Phone NINA GARCIA Primary Care Provide r NINA GARCIA Referring Provider Assessment Encounter Date Assessment Date Assessment LastModified by Organization Details LastModified Time 04/14/2025 04/14/2025 The above findings were discussed in detail the patient. She is 6 weeks from right fifth metacarpal base fracture being treated nonoperatively . X-rays demonstrate interval healing today. Clinically she [...] the plan. alan Not available 04/18/2025 08:48:33 Plan of Treatment Reminders Order Date Submit Date Provider Last Modified By Organization Details Last Modified Time Details Appointments None record ed. Lab None record ed. Referral None record ed. Procedures None record ed. Surgeries None record ed. Imaging XR, hand, 3 or more view 025 [facility], [address], [place], [address], 16:29:05 Medication Orders None record ed. Patient TargetsNo targets recorded. Patient Instructions Encounter Date Encounter Id Patient Instructions Last Modified By Organization Details Last Modified Time 04/14/2025 [id number] views of the right hand were ordered and reviewed today, demonstrates fifth metacarpal base fracture with interval callus formation. There is anatomic alignment. Mild diffuse demineralization of the bones. lschindelar Not available 04/18/2025 08:47:49 Reason for Referral None Reported. Problems Name Problem SNOMED Code Status Onset Date Resolution Date Notes Provider Name and Address Organization Details Recorded Time Closed fracture of patella 88936991 Active 2024 Fran Delarosa MD [address], [place], [address] , [place] [facility] 5 10:07:19 Closed fracture of base of fifth metacarpal bone of right hand 4335295128321 9108 Active 2024 Fran Delarosa MD [address], [place], [address] , [place] [facility] 5 10:07:49 Pain of right hand 8219597035449 09 Active 2024 Fran Delarosa MD [address], [place], [address] , [place] [facility] 5 10:40:22 Pain of left knee region 0643529813749 09 Active 2024 Fran Delarosa MD [address], [place], [address] , [place] [facility] 5 10:40:22 Problem Notes None recorded. Procedures Surgical History Date Name Laterality Status Provider Name and Address Organization Details Recorded Time operative procedure on knee completed Coco [place] - [facility] 03/15/2025 16:02:45 [facility] [place] [facility] 03/15/2025 16:03:04 Imaging Results None recorded. Procedure Notes None recorded. Medical Equipment None Reported. Allergies Allergen ID Allergen Name Allergen Category Reaction Reaction Severity Criticality Documentation Date Start Date Code Code System Note Provider Name and Address Organization Details Recorded Time 222626 terbinafi ne medicatio n Not available Not available Not available 05/25/2025 77767 RxNorm Not Available [employer] [employer] - prod 5 10:10:05 415197 ibuprofen medicatio n Not available Not available Not available 05/25/20252023 5640 RxNorm GI Probl ems Not Available [employer] - prod 5 10:10:10 919377 Naprosyn medicatio n Not available Not available Not available 05/25/2025 45773 2 RxNorm Not Available [employer] [employer] - prod 5 10:12:11 565300 oxycodone hydrochlo ride medicatio n Not available Not available Not available 05/25/20252022 90012 RxNorm Not Available [employer] [employer] - prod 5 10:12:11 630882 naproxen sodium medicatio n Not available Not available Not available 05/25/20252024 49339 2 RxNorm Not Available [facility] [employer] - prod 5 10:12:13 094037 terbinafi ne hydrochlo ride medicatio n other Not available Not available 05/25/20252010 30430 8 RxNorm Loss of taste Not Available [facility] [employer] - prod 5 10:12:13 78073 Lamisil medicatio n other moderate Not available 03/08/2025 63752 6 RxNorm Edmundo Teresa null, [place] [facility] 5 10:34:54 65921 naproxen medicatio n Not available Not available Not available 03/15/2025 7258 RxNorm Coco [place]ke null, [place] - [facility] 5 15:47:06 Medications Name Sig Start [...] t Available Vitals Date Recorded Body height Provider Name an d Address Organization Details Last Updated DateTime 04/14/2025 162.56 [address] Ed[address] [place] [facility] 04/14/2025 09:58:09 Social History None recorded. [...] Blood Transfusion N Emphysema N Hypothyroidism N COPD N Depression N Pacemaker N Vascular Disease N Gastrointestinal Disease N Anxiety Disorder N Autoimmune disease N Arthritis Y Cancer N Stroke N High Cholesterol N Neurologic Disorder N Liver Disease N Organ Transplant N Arrhythmia N Rheumatoid Arthritis N Fibromyalgia N Kidney Disease N Allergies/Hayfever Y Adverse Reaction to Anesthesia N Thyroid Problems N Anemia N Brain Injury N Heart Attack ([place]) N Osteopenia N Diabetes N Bleeding Disorder [...] ICD10 Code Diagnosis IMO Codes Diagnosis Note [id number] Fran Delarosa MD [facility] [address] [facility] [address] [place] [address] 03/29/2025 09:19:15 03/29/2025 10:05:26 Closed fracture of patella 44073212 S82.002A 478817714 Pain of le ft knee region 9612170882 60450 M25.562 85022948 Pain of right hand 24[address] 35127 M79.393 8054801 Closed fra cture of base of fifth metacarpal bone of right hand 6560051878 7563151 S62.346A [id number] Macarena Dillon MD [facility] [address] [facility] [address] [place] [address] 04/14/2025 09:56:29 04/14/2025 11:46:03 Closed fracture of base of fifth metacarpal bone of right hand 7325179559 2878937 S62.346A 3356964 Health Concerns Section Related Observation LastModified by Organization Detai ls LastModified Time None Recorded Concern Status LastModified by Organization Details LastModified Time None Recorded Payers Encounter Date Sequence Insurance Name Policy Number Policy Morris Covered Member ID Morris Member ID Guarantor Name 04/14/2025 1 [employer] [employer] [id number] Vanessa Sherman [id number] Vanessa Sherman Notes Date Note Type Note Provider Name and Address Organization Details Recorded Time 04/14/2025 text/html ROS as noted in the [...] a patella fracture on the left side. Macarena Dillon MD [address], [place], [address], [place] [facility] 04/18/2025 08:49:07 OBGyn Episode No OBEpisode recorded.
--- OUTSIDE RECORDS SUMMARY | 2025-06-13 20:58 | XMS_ITS | Encounter Summary ---
Author Organization [facility] Prior to 05/06/2024 Address [address] [place] [address] Care Team Providers Care Aluminizer Name Role Phone Trace Bray MD Primary Care Provider [phone] Reason for Visit * Reason Onset Date Comments refill request 06/13/2021 Encounter Details Date Type Department Care Team Description 06/13/2021 Refill Adult Medicine - [place] [address] [place] [address] Trace Bray MD [address] [place] [address] refill request Social History Tobacco Use Types [...] or suspected to have Coronavirus / COVID-19? Unable to assess 05/27/2021 2:11 PM EST documented as of this encounter Miscellaneous Notes * Telephone Encounter - Rosita Her M.A. - 06/13/2021 2:55 PM EST Kelsi - 05/28/21 Nov - none pt will call back to book appt * Telephone Encounter - Maame Nguyen - 06/13/2021 2:40 PM EST Patient would like script to be: E-PRESCRIBED/FAXED TO PHARMACY WHEN WAS THE PATIENT'S LAST APPOINTMENT IN ADULT MEDICINE? 05/28/21 WHEN WAS THE LAST TIME THE PATIENT SAW THEIR PCP? Not seen pcp Does patient have an upcoming appointment? No-patient refused appointment, will call back to book appointment (THE MEDICATION REQUESTED IS ON THE MED LIST ABOVE) All of the medications requested were on the CURRENT MEDS list Did you check the Pharmacy information above?: YES Patient wants: 30 -day supply Is this a mail order prescription request ? NO If the refill is from a FAXED refill request what is the RX # listed on the fax? N/A Patients current insurance carrier is: Payor: -[place]/PP[place] POS / Plan: FEP BASIC $30/$40 [place] / Product Type: PPO [id number] documented in this encounter Plan of Treatment Not on file documented as of this encounter Visit Diagnoses Not on filedocumented in this encounter Care Teams Aluminizer Relationship Specialty Start Date End Date Trace Bray MD [address] [place] [address] PCP - General Internal Medicine 12/25/20 documented as of this encounter
--- OUTSIDE RECORDS SUMMARY | 2025-06-13 20:58 | XMS_ITS | Encounter Summary ---
Author Organization [facility] Prior to 05/06/2024 Address [address] [place] [address] Care Team Providers Care Display Card Writer Name Role Phone Trace Bray MD Primary Care Provider [phone] Encounter Details Date Type Department Care Team Description 08/23/2021 Dump Grounds Checker Report Medical Records [address] [place] [address] Nita Ly PA-C Social History Tobacco Use Types Packs/Day [...] on filedocumented in this encounter Care Teams Display Card Writer Relationship Specialty Start Date End Date Trace Bray MD [address] [place], [place] PCP - General Internal Medicine 12/25/20 documented as of this encounter
== END 2025-06-13 15:23 | disposition home or self-care (01) ==
LOC: HO.HPHYS 14:49
PROVIDERS: Visit Provider Physical Medicine & Rehabilitation
DX: M54.16 Radiculopathy, lumbar region (principal); M53.3 Sacrococcygeal disorders, not elsewhere classified; M96.1 Postlaminectomy syndrome, not elsewhere classified
CPT/HCPCS: 99214